=== PATIENT | female | born 1980 | race Two or more races ===

== ENCOUNTER 2021-08-22 23:51 | Emergency (ER) | payer OTHER ==
[~2021-08-22] VITALS: Ht 170.2 cm; Wt 90.7 kg
[2021-08-23] MEDS ORDERED: ADDERALL 20 MG20 MG (00:01)
[2021-08-23] MEDS ORDERED: PERCOCET 5-3251 EACH PO (05:50)
== END 2021-08-23 05:58 | disposition home or self-care (01) ==
LOC: ER 23:51
DX: S42.491A Other displaced fracture of lower end of right humerus, initial encounter for closed fracture (principal); W18.39XA Other fall on same level, initial encounter; Y93.89 Activity, other specified; Y92.59 Other trade areas as the place of occurrence of the external cause; Y99.8 Other external cause status